=== PATIENT | female | born 1995 | race Two or more races ===

== ENCOUNTER 2019-02-13 20:32 | Emergency (ER) | payer OTHER ==
[2019-02-13 20:47] VITALS: BP 110/69; PULSE 90; TEMP 98; BMI 33.5
[2019-02-13] MEDS ORDERED: KETOROLAC TROMETHAMINE 30 MG/1 ML VIAL IVPUSH ONE (21:47)
--- NOTE | 2019-02-13 21:52 | PDOC ---
History of Present Illness - General Chief Complaint: Chest Pain Stated Complaint: CHEST PAIN/MIGRAINS History Source: Patient Exam Limitations: No Limitations - History of Present Illness Initial Comments: 02/13/19 21:57 Patient is a 23-year-old female with history of depression anxiety, migraine complaining of left-sided chest pain x 1 week. States her pain is nonreproducible, pleuritic like a tugging in her left chest 09/16 which is associated with shortness of breath and is worse when she is still. It is not aggravated by ambulation, or activity. States she has been taking Motrin for her pain with temporary relief. She was seen in urgent care yesterday for the same complaint, EKG done, (copy supplied by the patient) shows sinus arrhythmia with no ST-T wave changes and a chest x-ray which was reported as negative. Patient reports that she has had a cough also for about a week productive of yellow sputum. She has no history of OCP use, non-smoker cigarette (smokes marijuana occasionally), no recent travel, no leg swelling. Family history is negative for IN/CVA/PE/DVT. She also complains of a migraine headache which she has had for > 1 week. Explains the pain as sharp to the left side of her head with associated photophobia and nausea. Denies vomiting. PMD: In [place] PMHX: as above PSOHX: (+) MJ occ ALL: NKDA GENERAL/CONSTITUTIONAL: [No fever or chills. No weakness. No weight change.] HEAD, EYES, EARS, NOSE AND THROAT: [No change in vision. No ear pain or discharge. No sore throat.] CARDIOVASCULAR: [No chest pain or shortness of breath.] RESPIRATORY: [No cough, wheezing, or hemoptysis.] GASTROINTESTINAL: [(+) nausea, (-) vomiting, diarrhea or constipation. No rectal bleeding.] GENITOURINARY: [No dysuria, frequency, or change in urination.] MUSCULOSKELETAL: [No joint or muscle swelling or pain. No neck or back pain.] SKIN AND BREASTS: [No rash or easy bruising.] NEUROLOGIC: [No headache, vertigo, loss of consciousness, or loss of sensation.] PSYCHIATRIC: [No depression or anxiety.] ENDOCRINE: [No increased thirst. No abnormal weight change.] HEMATOLOGIC/LYMPHATIC: [No anemia, easy bleeding, or history of blood clots.] ALLERGIC/IMMUNOLOGIC: [No hives or skin allergy. No latex allergy.] GENERAL: [The patient is awake, alert, and fully oriented, in no acute distress. ] HEAD: [Normal with no signs of trauma.] EYES: [Pupils equal, round and reactive to light, extraocular movements intact, sclera anicteric, conjunctiva clear.] ENT: [Ears normal, nares patent, oropharynx clear without exudates. Moist mucous membranes.] NECK: [Normal range of motion, supple without lymphadenopathy, JVD, or masses.] LUNGS: [Breath sounds equal, clear to auscultation bilaterally. No wheezes, and no crackles.] HEART: [Regular rate and rhythm, normal S1 and S2 without murmur, rub.] ABDOMEN: [Soft, nontender, normoactive bowel sounds. No guarding, no rebound. No masses.] EXTREMITIES: [Normal range of motion, no edema. No clubbing or cyanosis. No cords, erythema, or tenderness.] NEUROLOGICAL: [Cranial nerves II through XII grossly intact. Normal speech, normal gait.] PSYCH: [Normal mood,mal turgor, no rashes or lesions noted.] Past History - Past Medical History Allergies/Adverse Reactions: Allergies Allergy/AdvReac Type Severity Reaction Status Date / Time No Known Allergies Allergy Verified 02/13/19 20:47 COPD: No Psychiatric Problems: Yes (DEPRESSION,ANXIETY) - Psycho Social/Smoking Cessation Hx Smoking History: Never smoked *Physical Exam - Vital Signs Last Vital Signs Temp Pulse Resp BP Pulse Ox 98.0 F 90 18 110/69 97 02/13/19 20:45 02/13/19 20:45 02/13/19 20:45 02/13/19 20:45 02/13/19 20:45 ED Treatment Course - LABORATORY CBC & Chemistry Diagram: 02/13/19 21:50 02/13/19 21:50 - ADDITIONAL ORDERS Additional order review: Laboratory Results 02/13/19 02/13/19 02/13/19 22:25 22:25 21:50 D-Dimer < 215 Sodium Potassium Chloride Carbon Dioxide Anion Gap BUN Creatinine Est GFR (CKD-EPI)AfAm Est GFR (CKD-EPI)NonAf Random Glucose Calcium Total Bilirubin AST ALT Alkaline Phosphatase Creatine Kinase Troponin I Total Protein Albumin Urine Color Yellow Urine Appearance Cloudy Urine pH 6.0 Ur Specific [place] 1.026 Urine Protein Negative Urine Glucose (UA) Negative Urine Ketones Negative Urine Blood Negative Urine Nitrite Negative Urine Bilirubin Negative Urine Urobilinogen 1.0 Ur Leukocyte Esterase Trace Urine WBC (Auto) 9 Urine RBC (Auto) 2 Urine Casts (Auto) 14 U Epithel Cells (Auto) 22.5 Urine Bacteria (Auto) 116.1 Urine HCG, Qual Negative 02/13/19 21:50 D-Dimer Sodium 140 Potassium 3.8 Chloride 105 Carbon Dioxide 29 Anion Gap 6 L BUN 8.1 Creatinine 0.8 Est GFR (CKD-EPI)AfAm 120.44 Est GFR (CKD-EPI)NonAf 103.92 Random Glucose 93 Calcium 8.7 Total Bilirubin 0.4 AST 11 L ALT 16 Alkaline Phosphatase 73 Creatine Kinase 66 Troponin I < 0.02 Total Protein 6.8 Albumin 3.7 Urine Color Urine Appearance Urine pH Ur Specific [place] Urine Protein Urine Glucose (UA) Urine Ketones Urine Blood Urine Nitrite Urine Bilirubin Urine Urobilinogen Ur Leukocyte Esterase Urine WBC (Auto) Urine RBC (Auto) Urine Casts (Auto) U Epithel Cells (Auto) Urine Bacteria (Auto) Urine HCG, Qual 02/13/19 21:50 RBC 4.76 MCV 85.8 MCHC 33.2 RDW 13.3 MPV 8.2 Neutrophils % 63.7 Lymphocytes % 28.3 Monocytes % 7.3 Eosinophils % 0.4 Basophils % 0.3 - Medications Given in the ED: ED Medications Discontinued Medications Generic Name Dose Route Start Last Admin Trade Name Freq PRN Reason Stop Dose Admin Ketorolac Tromethamine 30 mg 02/13/19 21:47 02/13/19 22:24 Toradol Injection - IVPUSH 02/13/19 21:48 30 mg ONCE ONE Administration Metoclopramide HCl 10 mg 02/13/19 23:59 02/14/19 00:25 Reglan Injection - IVPUSH 02/14/19 00:00 10 mg ONCE ONE Administration Medical Decision Making - Medical Decision Making 02/13/19 21:57 Patient is a 23-year-old female with history of depression anxiety, migraine complaining of left-sided chest pain x 1 week. States her pain is nonreproducible, pleuritic like a tugging in her left chest 09/16 which is associated with shortness of breath and is worse when she is still. It is not aggravated by ambulation, or activity. States she has been taking Motrin for her pain with temporary relief. She was seen in urgent care yesterday for the same complaint, EKG done, (copy supplied by the patient) shows sinus arrhythmia with no ST-T wave changes and a chest x-ray which was reported as negative. Patient reports that she has had a cough also for about a week productive of yellow sputum. She has no history of OCP use, non-smoker cigarette (smokes marijuana occasionally), no recent travel, no leg swelling. Family history is negative for IN/CVA/PE/DVT. She also complains of a migraine headache which she has had for > 1 week. Explains the pain as sharp to the left side of her head with associated photophobia and nausea. Denies vomiting. Patient with multiple complaints 1 chest pain most likely musculoskeletal. Patient is PERC negative, no risk for ACS We will do labs include d-dimer, and troponin Chest x-ray already done at urgent care and noted to be negative Headaches consistent with migraine headaches Toradol 30 mg IV Labs reviewed no acute findings troponin is negative, d-dimer negative,. EKG SR rate 99, normal axis, incomplete RBBB. Patient states has improvement of the chest pain however still has a headache given Reglan 10 mg IV Patient feels improved and is requesting discharge I discussed the physical exam findings, ancillary test results and final diagnoses with the patient. I answered all of the patient's questions. The patient was satisfied with the care received and felt comfortable with the discharge plan and treatment plan. The Patient agrees to follow up with the primary care physician within 24-72 hours. Patient instructed that she needs to follow-up with cardiology. A copy of her EKG was given to her. Discharge - Discharge Information Problems reviewed: Yes Clinical Impression/Diagnosis: Migraine headache Qualifiers: Migraine type: unspecified Status migrainosus presence: without status migrainosus Intractability: not intractable Qualified Code(s): G43.909 - Migraine, unspecified, not intractable, without status migrainosus Chest pain Qualifiers: Chest pain type: chest pain on breathing Qualified Code(s): R07.1 - Chest pain on breathing Condition: Stable Disposition: HOME - Follow up/Referral Referrals: Kwesi Blanco MD [Staff Physician] - - Patient Discharge Instructions Patient Printed Discharge Instructions: DI for Atypical Chest Pain - Post Discharge Activity Work/Back to School Note: Back to Work
[2019-02-13 22:02] LABS: BASO % 0.3 % (0-2.0); EOS % 0.4 % (0-4.5); HEMATOCRIT 40.8 % (32.4-45.2); HEMOGLOBIN 13.5 GM/dL (10.7-15.3); LYMPH % 28.3 % (8-40); MCH 28.4 pg (25.7-33.7); MCHC 33.2 g/dl (32.0-36.0); MEAN CELL VOLUME 85.8 fl (80-96); MEAN PLT VOLUME 8.2 fl (7.5-11.1); MONO % 7.3 % (3.8-10.2); NEUT % 63.7 % (42.8-82.8); PLATELET COUNT 202 K/MM3 (134-434); RBC 4.76 M/mm3 (3.60-5.2); RDW 13.3 % (11.6-15.6); WHITE BLOOD COUNT 7.9 K/mm3 (4.0-10.0)
[2019-02-13] MEDS ORDERED: KETOROLAC TROMETHAMINE 30 MG/1 ML VIAL ONE (22:21)
[2019-02-13 22:36] LABS: EPI CELLS 22.5 /HPF (0-5/HPF); HYALINE CASTS 14 /lpf (0-8); URINE APPEARANCE CLOUDY; URINE BACTERIA 116.1 /hpf (NEGATIVE); URINE BILIRUBIN NEGATIVE (NEGATIVE); URINE COLOR YELLOW; URINE GLUCOSE (UA) NEGATIVE (NEGATIVE); URINE KETONE NEGATIVE (NEGATIVE); URINE LEUK ESTERASE TRACE (NEGATIVE); URINE NITRITE NEGATIVE (NEGATIVE); URINE PROTEIN NEGATIVE (NEGATIVE); URINE RBC 2 /hpf (0-4); URINE WBC 9 /hpf (0-5)
[2019-02-13 22:43] LABS: ALBUMIN 3.7 g/dl (3.4-5.0); ALK PHOS 73 U/L (45-117); ANION GAP 6 MMOL/L (8-16); BILIRUBIN,TOTAL 0.4 mg/dL (0.2-1); BLOOD UREA NITROGEN 8.1 mg/dL (7-18); CHLORIDE 105 mmol/L (98-107); CO2 29 mmol/L (21-32); CREATININE 0.8 mg/dL (0.55-1.3); GLUCOSE,RANDOM 93 mg/dL (74-106); POTASSIUM 3.8 mmol/L (3.5-5.1); SGOT/AST 11 U/L (15-37); SGPT/ALT 16 U/L (13-61); SODIUM 140 mmol/L (136-145); TOT PROT 6.8 g/dl (6.4-8.2)
[2019-02-13 22:44] LABS: CALCIUM 8.7 mg/dL (8.5-10.1)
[2019-02-13] MEDS ORDERED: METOCLOPRAMIDE HCL INJECTION 10 MG/2 ML VIAL IVPUSH ONE (23:59)
[2019-02-14] MEDS ORDERED: METOCLOPRAMIDE HCL INJECTION 10 MG/2 ML VIAL ONE (00:19)
--- NOTE | 2019-02-15 13:41 | EKG ---
Test Reason : Blood Pressure : / mmHG Vent. Rate : 099 BPM Atrial Rate : 099 BPM P-R Int : 144 ms QRS Dur : 102 ms QT Int : 362 ms P-R-T Axes : 071 017 045 degrees QTc Int : 464 ms NORMAL SINUS RHYTHM POSSIBLE LEFT ATRIAL ENLARGEMENT INCOMPLETE RIGHT BUNDLE BRANCH BLOCK BORDERLINE ECG NO PREVIOUS ECGS AVAILABLE Confirmed by CHARITY ABEBE MD ([id number]) on 02/15/2019 1:41:17 PM Referred By: Confirmed By:CHARITY ABEBE MD
== END 2019-02-14 01:00 | disposition home or self-care (01) ==
LOC: EDBD 20:32 → JER 20:32
DX: R07.1 Chest pain on breathing (principal); G43.909 Migraine, unspecified, not intractable, without status migrainosus; F41.8 Other specified anxiety disorders
CPT/HCPCS: 36415; 80053; 81003; 82550; 84484; 84703; 85025; 85379; 93005; 93010; 99283-25